=== PATIENT | female | born 1965 | race Caucasian/White ===

== ENCOUNTER 2020-04-05 01:47 | Outpatient (CLI) | payer OTHER, SELFPAY ==
[2020-04-07 21:38] LABS: SARS-CoV-2 RNA PCR Negative
== END 2020-04-05 01:48 | disposition home or self-care (01) ==
LOC: ANHCOVIDDT 01:47
PROVIDERS: PCP Physician Assistant; Visit Provider Internal Medicine Gastroenterology
DX: Z01.812 Encounter for preprocedural laboratory examination (principal); Z11.59 Encounter for screening for other viral diseases
CPT/HCPCS: 87635; C9803; U0003

== ENCOUNTER 2020-04-09 01:32 | Day surgery (SDC) | payer OTHER, SELFPAY ==
[2020-04-01 09:49] VITALS: BMI 24.9
[2020-04-09] MEDS: LACTATED RINGERS 1,000 ML 150 ML IV CONT (10:53)
[2020-04-09 10:56] VITALS: BP 106/70; PULSE 20; RESP 20; TEMP 36.4; O2SAT 99
--- NOTE | 2020-04-09 11:31 | WPDANESEPPF ---
Anes - Initial Pre Proc Eval Procedure: Operation Date: 04/09/20 12:30 Proposed Procedures p Esophagogastroduodenoscopy & Screening Colonoscopy - Sudarshan Kimball MD Date/Time: 04/09/20 11:31 Surgeon: Sudarshan Kimball MD Pre Op Diagnosis: abdominal pain, neoplasm screening Patient Data Age: 54 Gender: F Height: 5 ft 5 in Weight: 69 kg Last Vital Signs Temp 97.6 F 04/09/20 10:56 Pulse 20 L 04/09/20 10:56 Resp 20 04/09/20 10:56 BP 106/70 04/09/20 10:56 Pulse Ox 99 04/09/20 10:56 Allergies Allergy/AdvReac Type Severity Reaction Status Date / Time lorazepam [From Ativan] Allergy Unknown unknown Verified 04/01/20 09:42 Home Medications Medication Instructions Recorded Confirmed Type aspirin 81 mg tablet,delayed 81 mg PO DAILY 02/20/20 04/09/20 History release atenolol 50 mg tablet 50 mg PO DAILY 02/20/20 04/09/20 History atorvastatin 20 mg tablet 20 mg PO DAILY 02/20/20 04/09/20 History calcium citrate 200 mg (950 mg) See Rx Instructions PO BID 02/20/20 04/09/20 History tablet cholecalciferol (vitamin D3) 50 50 mcg PO DAILY 02/20/20 04/09/20 History mcg (2,000 unit) capsule diazepam 10 mg tablet 10 mg PO BID PRN 02/20/20 04/09/20 History duloxetine 60 mg capsule,delayed 60 mg PO DAILY 02/20/20 04/09/20 History release sprinkle fluoxetine 20 mg capsule 20 mg PO DAILY 02/20/20 04/09/20 History gabapentin 800 mg tablet 800 mg PO TID 02/20/20 04/09/20 History lisinopril 20 mg tablet 20 mg PO DAILY 02/20/20 04/09/20 History olanzapine 5 mg tablet 5 mg PO DAILY 02/20/20 04/09/20 History omeprazole 40 mg capsule,delayed 40 mg PO DAILY 02/20/20 04/09/20 History release ropinirole 1 mg tablet 1 mg PO .COMPLEX tablet 02/20/20 04/09/20 History dicyclomine 10 mg capsule 10 mg PO BID PRN #60 cap 02/28/20 04/09/20 Rx Patient hx anesthesia problems: none Family hx anesthesia problems: none PMFSH Past Medical History Medical History Anxiety Benzodiazepine dependence CAD (coronary artery disease) Chronic post-traumatic stress disorder (PTSD) Colitis Hip pain Hyponatremia Lumbar radiculopathy Neck pain Nerve root disorder NSAID long-term use Osteoarthritis Pulmonary embolism Tobacco abuse Tobacco user Surgical History Surgical History Delivery by section H/O colonoscopy H/O dilation and curettage H/O: hysterectomy History of appendectomy History of heart artery stent Hx of cholecystectomy Social History Social History (Updated 02/20/20 @ 15:58 by Milagro Bowman) Smoking status: Unknown if ever smoked Gender identity (if verbalized by the patient): Female Sexual Orientation (if Verbalized by the Patient): Straight or Heterosexual Anes - Eval Final PreProcedure Day of Procedure 04/09/20 11:31 Patient weight: normal Heart: regular rate and rhythm Lungs: clear to auscultation Airway: Mallampati scale class III Neurological: alert and oriented Last oral intake: >/= 8 hours ASA classification: III Emergent: no Anesthetic plan: proceed Anesthesia type and monitoring: general GIVS and standard monitoring Informed Consent: The patient's anesthetic plan and its attendant risks and benefits were discussed with the patient/family/POA. Questions were solicited and answers provided to the satisfaction of the patient/family/POA.
--- NOTE | 2020-04-09 11:54 | PM.HPGS ---
History of Present Illness History of Present Illness Consent: Risks, benefits, and alternatives have been discussed and questions answered. Patient agrees to proceed with procedure. Chief complaint: abdominal pain, neoplasm screening Narrative: Any De La Torre is a 54 year old female with abdominal and ischemic colitis, now with alternating constipation and diarrhea Review of Systems Constitutional: Constitutional: Denies headache(s) and Denies weakness Eyes: Eyes: Denies blurry vision ENT: Reports Normal hearing present, Denies headache(s) and Denies neck pain Cardiovascular: Cardiovascular: Denies chest pain and Denies dyspnea Respiratory: Respiratory: Denies dyspnea Gastrointestinal: Gastrointestinal: Reports no additional gastrointestinal complaints Genitourinary: Genitourinary: Denies dysuria Musculoskeletal: Musculoskeletal: Denies neck pain Integumentary/Breasts: Skin/Breast: Denies dry skin Neurologic: Reports Normal hearing present, Denies headache(s) and Denies weakness Psychiatric: Psychiatric: Denies anxiety Endocrine: Endocrine: Denies change in body appearance Hematologic/Lymphatic: Hematologic/Lymphatic: Denies easy bleeding Allergic/Immunologic: Allergic/Immunologic: Denies urticaria PMFSH Past Medical History Medical History Abdominal pain Anxiety Benzodiazepine dependence CAD (coronary artery disease) Chronic post-traumatic stress disorder (PTSD) Colitis Hip pain Hyponatremia Lumbar radiculopathy Neck pain Nerve root disorder NSAID long-term use Osteoarthritis Pulmonary embolism Tobacco abuse Tobacco user Surgical History Surgical History Delivery by section H/O colonoscopy H/O dilation and curettage H/O: hysterectomy History of appendectomy History of heart artery stent Hx of cholecystectomy Social History Social History (Updated 02/20/20 @ 15:58 by Milagro Bowman) Smoking status: Unknown if ever smoked Gender identity (if verbalized by the patient): Female Sexual Orientation (if Verbalized by the Patient): Straight or Heterosexual Meds Home Medications and Allergies Home Medications Medication Instructions Recorded Confirmed Type aspirin 81 mg tablet,delayed 81 mg PO DAILY 02/20/20 04/09/20 History release atenolol 50 mg tablet 50 mg PO DAILY 02/20/20 04/09/20 History atorvastatin 20 mg tablet 20 mg PO DAILY 02/20/20 04/09/20 History calcium citrate 200 mg (950 mg) See Rx Instructions PO BID 02/20/20 04/09/20 History tablet cholecalciferol (vitamin D3) 50 50 mcg PO DAILY 02/20/20 04/09/20 History mcg (2,000 unit) capsule diazepam 10 mg tablet 10 mg PO BID PRN 02/20/20 04/09/20 History duloxetine 60 mg capsule,delayed 60 mg PO DAILY 02/20/20 04/09/20 History release sprinkle fluoxetine 20 mg capsule 20 mg PO DAILY 02/20/20 04/09/20 History gabapentin 800 mg tablet 800 mg PO TID 02/20/20 04/09/20 History lisinopril 20 mg tablet 20 mg PO DAILY 02/20/20 04/09/20 History olanzapine 5 mg tablet 5 mg PO DAILY 02/20/20 04/09/20 History omeprazole 40 mg capsule,delayed 40 mg PO DAILY 02/20/20 04/09/20 History release ropinirole 1 mg tablet 1 mg PO .COMPLEX tablet 02/20/20 04/09/20 History dicyclomine 10 mg capsule 10 mg PO BID PRN #60 cap 02/28/20 04/09/20 Rx Allergies Allergy/AdvReac Type Severity Reaction Status Date / Time lorazepam [From Ativan] Allergy Unknown unknown Verified 04/01/20 09:42 Vital Signs Vital Signs - 24 hr 04/09/20 10:56 Temperature 97.6 F Pulse Rate 20 L Respiratory Rate 20 Blood Pressure 106/70 Pulse Oximetry 99 Exam Const: General: comfortable and no acute distress HENMT: General nose exam: Normal nares present Eyes: General: appearance normal, both eyes and all related structures Neck: Neck: no JVD Resp: Auscultation: clear to auscultation bilaterally Cardio: Rate: regular rate Rhythm: regular rhythm GI: Inspection: no
[2020-04-09 12:45] VITALS: BP 112/65; PULSE 83; RESP 19; O2SAT 99
[2020-04-09 12:52] VITALS: BP 112/65; PULSE 83; RESP 19; O2SAT 99
[2020-04-09 12:55] VITALS: BP 110/67; PULSE 85; RESP 23; O2SAT 99
[2020-04-09 13:05] VITALS: BP 126/70; PULSE 83; RESP 15; O2SAT 97
== END 2020-04-09 13:28 | disposition home or self-care (01) ==
PROVIDERS: PCP Physician Assistant; Visit Provider Internal Medicine Gastroenterology
PROC: 0DJ08ZZ Inspection of Upper Intestinal Tract, Via Natural or Artificial Opening Endoscopic (ICD-10-PCS; CPT 43235; principal; 2020-04-09 12:30)
DX: Z09 Encounter for follow-up examination after completed treatment for conditions other than malignant neoplasm (principal); K56.699 Other intestinal obstruction unspecified as to partial versus complete obstruction; K52.9 Noninfective gastroenteritis and colitis, unspecified; K57.30 Diverticulosis of large intestine without perforation or abscess without bleeding; K25.9 Gastric ulcer, unspecified as acute or chronic, without hemorrhage or perforation; K29.50 Unspecified chronic gastritis without bleeding; I25.10 Atherosclerotic heart disease of native coronary artery without angina pectoris; Z79.82 Long term (current) use of aspirin; F41.9 Anxiety disorder, unspecified; Z86.711 Personal history of pulmonary embolism
CPT/HCPCS: 45380; 45386; 43239; 87081; 88305; J2704; J7120

== ENCOUNTER 2021-06-02 01:57 | Day surgery (SDC) | payer OTHER, SELFPAY ==
[2021-05-22 13:24] VITALS: BMI 25.9
[2021-06-02 09:14] VITALS: BP 108/70; PULSE 78; RESP 20; TEMP 36.2; O2SAT 100
[2021-06-02] MEDS: LACTATED RINGERS 1,000 ML 150 ML IV CONT (09:26)
--- NOTE | 2021-06-02 09:29 | WPDANESEPPF ---
Anes - Initial Pre Proc Eval Procedure: Operation Date: 06/02/21 10:00 Proposed Procedures p Esophagogastroduodenoscopy & Colonoscopy - Sudarshan Kimball MD Date/Time: 06/02/21 09:29 Surgeon: Sudarshan Kimball MD Pre Op Diagnosis: gastric ulcer, constipation Patient Data Age: 56 Gender: F Height: 1.66 m Weight: 77.2 kg Last Vital Signs Temp 97.1 F L 06/02/21 09:14 Pulse 78 06/02/21 09:14 Resp 20 06/02/21 09:14 BP 108/70 06/02/21 09:14 Pulse Ox 100 06/02/21 09:14 Allergies Allergy/AdvReac Type Severity Reaction Status Date / Time lorazepam [From Ativan] Allergy Unknown unknown Verified 06/02/21 09:13 Home Medications Medication Instructions Recorded Confirmed Type aspirin 81 mg tablet,delayed 81 mg PO DAILY 02/20/20 05/22/21 History release atenolol 50 mg tablet 50 mg PO DAILY 02/20/20 05/22/21 History atorvastatin 20 mg tablet 20 mg PO DAILY 02/20/20 05/22/21 History calcium citrate 200 mg (950 mg) See Rx Instructions PO BID 02/20/20 05/22/21 History tablet diazepam 10 mg tablet 10 mg PO BID PRN 02/20/20 05/22/21 History fluoxetine 20 mg capsule 20 mg PO DAILY 02/20/20 05/22/21 History gabapentin 800 mg tablet 800 mg PO TID 02/20/20 05/22/21 History omeprazole 40 mg capsule,delayed 40 mg PO BID #60 cap 04/09/20 05/22/21 Rx release cyclobenzaprine 10 mg PO QID 12/17/20 05/22/21 History dicyclomine 10 mg capsule See Rx Instructions .ROUTE 04/28/21 05/22/21 Rx .COMPLEX #60 cap duloxetine 60 mg PO BID 05/22/21 05/22/21 History lisinopril 30 mg PO DAILY 05/22/21 05/22/21 History Patient hx anesthesia problems: none Family hx anesthesia problems: none PMFSH Past Medical History Medical History Abdominal pain Anxiety Benzodiazepine dependence CAD (coronary artery disease) Chronic post-traumatic stress disorder (PTSD) Colitis Gastric ulcer GERD (gastroesophageal reflux disease) Hip pain Hyponatremia Irritable bowel syndrome with constipation Lumbar radiculopathy Neck pain Nerve root disorder NSAID long-term use Osteoarthritis Pulmonary embolism Stricture of ascending colon Tobacco abuse Tobacco user Surgical History Surgical History Delivery by section H/O colonoscopy H/O dilation and curettage H/O: hysterectomy History of appendectomy History of heart artery stent Hx of cholecystectomy Family History Family History Father Alcoholism Cardiac arrest Heart disease Hypercholesteremia Hypertension Mother Diabetes mellitus Sibling Cardiac arrest Social History Social History Smoking packs per day: 1 Smoking cigarettes per day: 20.0 Smoking status: Current every day smoker Tobacco type: cigarettes Alcohol intake: current Drinks per week: 4 Alcohol use details: RARELY Substance use: never Substance use type: marijuana Last use: 05/21/21 Living arrangements: alone Gender identity (if verbalized by the patient): Female Sexual Orientation (if Verbalized by the Patient): Straight or Heterosexual Spiritual care concerns: No Anes - Eval Final PreProcedure Day of Procedure 06/02/21 09:29 Patient weight: overweight Heart: regular rate and rhythm Lungs: clear to auscultation Airway: Mallampati scale class II Neurological: alert and oriented Last oral intake: >/= 8 hours ASA classification: III Emergent: no Anesthetic plan: proceed Anesthesia type and monitoring: general GIVS and standard monitoring Informed Consent: The patient's anesthetic plan and its attendant risks and benefits were discussed with the patient/family/POA. Questions were solicited and answers provided to the satisfaction of the patient/family/POA.
--- NOTE | 2021-06-02 09:51 | PM.HPGS ---
History of Present Illness History of Present Illness Consent: Risks, benefits, and alternatives have been discussed and questions answered. Patient agrees to proceed with procedure. Chief complaint: gastric ulcer, constipation Narrative: Any Bush is a 56 year old female h/o gastric ulcer last year, also had ascending colon stricture dilated last year (initially in 2019 and probably from ischemic colitis, biopsies in the past showed inflammation). Review of Systems Constitutional: Constitutional: Denies headache(s) and Denies weakness Eyes: Eyes: Denies blurry vision ENT: Reports Normal hearing present, Denies headache(s) and Denies neck pain Cardiovascular: Cardiovascular: Denies chest pain and Denies dyspnea Respiratory: Respiratory: Denies dyspnea Gastrointestinal: Gastrointestinal: Reports no additional gastrointestinal complaints Genitourinary: Genitourinary: Denies dysuria Musculoskeletal: Musculoskeletal: Denies neck pain Integumentary/Breasts: Skin/Breast: Denies dry skin Neurologic: Reports Normal hearing present, Denies headache(s) and Denies weakness Psychiatric: Psychiatric: Denies anxiety Endocrine: Endocrine: Denies change in body appearance Hematologic/Lymphatic: Hematologic/Lymphatic: Denies easy bleeding Allergic/Immunologic: Allergic/Immunologic: Denies urticaria PMFSH Past Medical History Medical History Abdominal pain Anxiety Benzodiazepine dependence CAD (coronary artery disease) Chronic post-traumatic stress disorder (PTSD) Colitis Gastric ulcer GERD (gastroesophageal reflux disease) Hip pain Hyponatremia Irritable bowel syndrome with constipation Lumbar radiculopathy Neck pain Nerve root disorder NSAID long-term use Osteoarthritis Pulmonary embolism Stricture of ascending colon Tobacco abuse Tobacco user Surgical History Surgical History Delivery by section H/O colonoscopy H/O dilation and curettage H/O: hysterectomy History of appendectomy History of heart artery stent Hx of cholecystectomy Family History Family History Father Alcoholism Cardiac arrest Heart disease Hypercholesteremia Hypertension Mother Diabetes mellitus Sibling Cardiac arrest Social History Social History Smoking packs per day: 1 Smoking cigarettes per day: 20.0 Smoking status: Current every day smoker Tobacco type: cigarettes Alcohol intake: current Drinks per week: 4 Alcohol use details: RARELY Substance use: never Substance use type: marijuana Last use: 05/21/21 Living arrangements: alone Gender identity (if verbalized by the patient): Female Sexual Orientation (if Verbalized by the Patient): Straight or Heterosexual Spiritual care concerns: No Meds Home Medications and Allergies Home Medications Medication Instructions Recorded Confirmed Type aspirin 81 mg tablet,delayed 81 mg PO DAILY 02/20/20 05/22/21 History release atenolol 50 mg tablet 50 mg PO DAILY 02/20/20 05/22/21 History atorvastatin 20 mg tablet 20 mg PO DAILY 02/20/20 05/22/21 History calcium citrate 200 mg (950 mg) See Rx Instructions PO BID 02/20/20 05/22/21 History tablet diazepam 10 mg tablet 10 mg PO BID PRN 02/20/20 05/22/21 History fluoxetine 20 mg capsule 20 mg PO DAILY 02/20/20 05/22/21 History gabapentin 800 mg tablet 800 mg PO TID 02/20/20 05/22/21 History omeprazole 40 mg capsule,delayed 40 mg PO BID #60 cap 04/09/20 05/22/21 Rx release cyclobenzaprine 10 mg PO QID 12/17/20 05/22/21 History dicyclomine 10 mg capsule See Rx Instructions .ROUTE 04/28/21 05/22/21 Rx .COMPLEX #60 cap duloxetine 60 mg PO BID 05/22/21 05/22/21 History lisinopril 30 mg PO DAILY 05/22/21 05/22/21 History Allergies Allergy/AdvReac Type Severity Reaction Status Date / Time lorazepam [F
--- NOTE | 2021-06-02 10:03 | SUR.OPER ---
Esophageal Balloon Lot: [id number] Exp: 2023-02-26
--- NOTE | 2021-06-02 10:53 | SUR.OPER ---
Colonic Balloon Lot: [id number] Exp: 2021-11-20
[2021-06-02 11:04] VITALS: BP 97/51; PULSE 71; RESP 17; O2SAT 100
[2021-06-02 11:14] VITALS: BP 123/72; PULSE 72; RESP 18; O2SAT 100
[2021-06-02 11:24] VITALS: BP 126/79; PULSE 78; RESP 22; O2SAT 100
== END 2021-06-02 11:36 | disposition home or self-care (01) ==
PROVIDERS: PCP Physician Assistant; Visit Provider Internal Medicine Gastroenterology
PROC: 0DJ08ZZ Inspection of Upper Intestinal Tract, Via Natural or Artificial Opening Endoscopic (ICD-10-PCS; CPT 43235; principal; 2021-06-02 10:00)
DX: K56.699 Other intestinal obstruction unspecified as to partial versus complete obstruction (principal); K52.9 Noninfective gastroenteritis and colitis, unspecified; K57.30 Diverticulosis of large intestine without perforation or abscess without bleeding; K64.8 Other hemorrhoids; K25.3 Acute gastric ulcer without hemorrhage or perforation; B45.8 Other forms of cryptococcosis; K31.84 Gastroparesis; K21.9 Gastro-esophageal reflux disease without esophagitis; I25.10 Atherosclerotic heart disease of native coronary artery without angina pectoris; F41.9 Anxiety disorder, unspecified; Z79.82 Long term (current) use of aspirin; Z95.5 Presence of coronary angioplasty implant and graft; F17.210 Nicotine dependence, cigarettes, uncomplicated; F12.90 Cannabis use, unspecified, uncomplicated
CPT/HCPCS: 45386; 45380; 43245; 88305; 88312; C1726; J2704; J7120